=== PATIENT | female | born 1990 | race Caucasian/White ===

== ENCOUNTER 2019-02-17 09:55 | Outpatient (REF) | payer MEDICAID, SELFPAY ==
--- NOTE | 2019-02-17 09:20 | PAPFT_PTH ---
PATIENT: SABINE DIALLO LOC: [facility] U#:[id number] AGE/SX: 28/F ROOM: RE02/17/[address]: Caitlin Eden : 1990 BED: DIS: 02/17/2019 SPEC #: [id number] RECD: 02/17/19 13:00 STATUS: EMIR REJacob #: [id number] MICHAEL: 02/17/19 09:[address]: Caitlin Eden DEPT: [facility] Cytology RECD BY: Deedee Aceves ENTERED: 02/17/19 13:00 SP TYPE: PAPFT OTHR DR: Diane Hernández Tissues: 1 - CX/ENDOCX FOR PAP SMEARS Procedures: PAP THIN PREP/[facility] Screening HPV DNA PROBE Comments: [id number]
== END 2019-02-17 10:15 ==
LOC: LBN 09:55
PROVIDERS: PCP Internal Medicine; Visit Provider Obstetrics & Gynecology Gynecology
DX: Z12.4 Encounter for screening for malignant neoplasm of cervix (principal); Z11.51 Encounter for screening for human papillomavirus (HPV)
CPT/HCPCS: 88142; 87624

== ENCOUNTER 2020-03-21 01:08 | Outpatient (CLI) | payer MEDICAID, SELFPAY ==
--- NOTE | 2020-03-21 06:45 | DI.US_ITS ---
EXAM: US PELVIS TRANSVAGINAL CLINICAL HISTORY: ABNL UTERINE BLEEDING, pelvic pain, dyspareunia,R10.2,N93.9 TECHNIQUE: Ultrasound performed using standard protocol. COMPARISON: US OB US 2-3 TRIMESTER TRANSABD*P from 08/21/2016 FINDINGS: Pelvic ultrasound was performed transabdominally and transvaginally. Uterus measures 31 x 32 x 40 millimeters. Endometrial stripe is 6 millimeters in thickness and appea rs homogeneous. There is a small calcification adjacent to the endometrium probably representing a s mall calcified submucosal fibroid. Right ovary measures 28 x 12 x 13 millimeters. Left ovary measures 31 x 22 x 26 millimeters and contains a collapsing cyst measuring about 20 millim eters in greatest diameter. Limited scanning of the kidneys is unremarkable. No free fluid in the cul-de-sac. IMPRESSION: Probable small calcified submucosal fibroid. No other significant change. DATA REPOSITORY:
== END 2020-03-21 01:28 ==
PROVIDERS: PCP Internal Medicine; Visit Provider Nurse Practitioner Women's Health
DX: N93.9 Abnormal uterine and vaginal bleeding, unspecified (principal); R10.2 Pelvic and perineal pain
CPT/HCPCS: 76830; 76856